=== PATIENT | female | born 1995 | race Hispanic/Latino ===

== ENCOUNTER 2024-06-07 09:35 | Emergency (ER) | payer BC ==
--- OUTSIDE RECORDS SUMMARY | 2024-06-07 09:39 | XMS REPORT | Continuity of Care Document ---
Author Name Unknown Address [address] [place] [address]. [address] [place] [id number] [facility] thconnect Address [address] [place] [address] 1 [address] [place] [address] Care Team Providers Care Professor Of Theology Name Role Phone LITO KHAN Attending Clinician UnavailLEIA Ortega Attending Clinician Unavailab le AMBREEN_FARHANA Attending Clinician Unavailable Zuniga_F Attending Clinician Unavailable KD DORAN Attending Clinician Unavailab le Hawkins_Rhianna Attending Clinician Unavailable G_Paptc Attending Clinician Unavailable ZACH DEL VALLE Attending Clinician Unavailab HANNAH Bolton Attending Clinician Unavailable LITO BARCENAS Attending Clinician Unavailable RASHMI HILL Attending Clinician Unavailab DELLA Kimball Attending Clinician Unavailable SUSY KAUFMAN Attending Clinician Unavailable ERROL MONIQUE Attending Clinician Unavailable PIPER SÁNCHEZ Attending Clinician Unav LISA Olivo Attending Clinician Unavailable AMBREEN_FARHANA Admitting Clinician Unavailable Zuniga_F Admitting Clinician Unavailable Hawkins_M Admitting Clinician Unavailable Sheyla_Erin Admitting Clinician Unavailable LITO KHAN Admitting Clinician Unavailabl e Payers Payer Name Policy Type Policy Number Effective Date Expirati on Date Source [place] [id number] 2023 00:00:00 2023 00:00:00 [facility] H[facility] [id number] 2016 00:00[place] [id number] [place] [facility] [address] [facility] [id number] [place] [facility] [place]ID) [id number] Problems Condition Name Condition Details Condition Category Status Onset Date Resolution Date Last Treatment Date Treating Clinician Comments Source Anxiety Anxiety Problem Active 2023-09 0 00:00: 00 [facility] Attention deficit hyperactiv ity disorder Attention Deficit Hyperactiv ity Disorder Problem Active 2023-09 0 00:00: 00 [facility] Tachycardi a Tachycardi a Problem Active 2023-09 0 00:00: 00 [facility] Past history of miscarriag e Past History of Miscarriag e Problem Active 06-03 00:00: 00 [facility] Uses depot contracept ion Uses Depot Contracept ion Problem Active 03-01 00:00: 00 [facility] Sterilizat ion requested Sterilizat ion Requested Problem Active 11-24 00:00: 00 [facility] External hemorrhoid s External Hemorrhoid s Problem Active 11-17 00:00: 00 [facility] Contracept ion education Contracept ion Education Problem Active 11-17 00:00: 00 [facility] Gynecologi c examinatio n Gynecologi c Examinatio n Problem Active 11-17 00:00: 00 [facility] Bacterial disease screening Bacterial Disease Screening Problem Active 16 00:00: 00 [facility] Bacterial vaginosis Bacterial Vaginosis Problem Active 10-25 00:00: 00 [facility] Candidiasi s of vagina Candidiasi s of Vagina Problem Active 10-25 00:00: 00 [facility] Deep pain on intercours e Deep Pain on Intercours e Problem Active 10-25 00:00: 00 [facility] Initial prescripti on of oral contracept ion Initial Prescripti on of Oral Contracept ion Problem Active 10-25 00:00: 00 [facility] Persistent hematuria Persistent Hematuria Problem Active 11-15 00:00: 00 [facility] Proteinuri a Proteinuri a Problem Active 11-15 00:00: 00 [facility] Acute stress disorder Acute Stress Disorder Problem [facility] 11[facility]01 [facility] Acute cystitis in , antepartum Acute Cystitis in , Antepartum Problem Active 11-01 00:00: 00 [facility] Acute cervicitis Acute Cervicitis Problem Active 10-18 00:00: 00 [facility] Mild hyperemesi s-not delivered Mild Hyperemesi s-not Delivered Problem Active 10-18 00:00: 00 [facility] Iron deficiency anemia of Iron Deficiency Anemia of Problem Active 11-29 00:00: 00 [facility] Influenza Influenza Problem Active [facility] Allergies, Adverse Reactions, Alerts Allergy Name Allergy Type Status Severity Reaction(s) Onset Date Inactive Date Treating Clinician Comments Source PENICILL INS Allergy to substanc e Active [facility] Social History Smoking Status Start Date Stop Date Source Never Smoker [facility] Medications Ordered Medication Name Filled Medication Name Start Date Stop Date Current Medication? Ordering Clinician Indication Dosage Frequency Signature (SIG) Comments Components Source Adderall XR 20 mg capsule,ext ended release Take 1 mg every day by oral route as directed for 30 days. Adderall XR 20 mg capsule,ext ended release Take 1 mg every day by oral route as directed for 30 days. 02-26 00:00: 00 No 1mg Q1D Adderall XR 20 mg capsule,ex tended release Take 1 mg every day by oral route as directed for 30 days. [facility] Adderall XR 20 mg capsule,ext ended release Take 1 mg every day by oral route as directed for 30 days. Adderall XR 20 mg capsule,ext ended release Take 1 mg every day by oral route as directed for 30 days. 2023-0 6-25 00:00: 00 No 1mg Q1D Adderall XR 20 mg capsule,ex tended release Take 1 mg every day by oral route as directed for 30 days. [facility] Aplisol 5 tub. unit/0.1 mL intradermal injection solution Inject 0.1 mL by intradermal route as directed. Aplisol 5 tub. unit/0.1 mL intradermal injection solution Inject 0.1 mL by intradermal route as directed. No .1mL Aplisol 5 tub. unit/0.1 mL intraderma l injection solution Inject 0.1 mL by intraderma l route as directed. [facility] ParaGard T 380A 380 square mm intrauterin e device Take 1 device by intrauterin e route. ParaGard T 380A 380 square mm intrauterin e device Take 1 device by intrauterin e route. No 1device (s) ParaGard T 380A 380 square mm intrauteri ne device Take 1 device by intrauteri ne route. [facility] alprazolam 0.25 mg tablet Take 1 tablet as needed by oral route for 30 days. alprazolam 0.25 mg tablet Take 1 tablet as needed by oral route for 30 days. No 1 alprazolam 0.25 mg tablet Take 1 tablet as needed by oral route for 30 days. [facility] citalopram 20 mg tablet Take 1 tablet every day by oral route as directed for 90 days. citalopram 20 mg tablet Take 1 tablet every day by oral route as directed for 90 days. No 1 Q1D citalopram 20 mg tablet Take 1 tablet every day by oral route as directed for 90 days. [facility] clobetasol 0.05 % scalp solution Apply 1 application every day by topical route as directed for 15 days. clobetasol 0.05 % scalp solution Apply 1 application every day by topical route as directed for 15 days. No 1applic ation(s ) Q1D clobetasol 0.05 % scalp solution Apply 1 applicatio n every day by topical route as directed for 15 days. [facility] metoprolol succinate ER 25 mg tablet,exte nded release 24 hr Take 1 tablet every day by oral route as directed for 30 days. metoprolol succinate ER 25 mg tablet,exte nded release 24 hr Take 1 tablet every day by oral route as directed for 30 days. No 1 Q1D metoprolol succinate ER 25 mg tablet,ext ended release 24 hr Take 1 tablet every day by oral route as directed for 30 days. [facility] alprazolam 0.25 mg tablet Take 1 tablet as needed by oral route for 30 days. alprazolam 0.25 mg tablet Take 1 tablet as needed by oral route for 30 days. No 1 alprazolam 0.25 mg tablet Take 1 tablet as needed by oral route for 30 days. [facility] Program citalopram 20 mg tablet Take 1 tablet every day by oral route as directed for 90 days. citalopram 20 mg tablet Take 1 tablet every day by oral route as directed for 90 days. No 1 Q1D citalopram 20 mg tablet Take 1 tablet every day by oral route as directed for 90 days. [facility] clobetasol 0.05 % scalp solution Apply 1 application every day by topical route as directed for 15 days. clobetasol 0.05 % scalp solution Apply 1 application every day by topical route as directed for 15 days. No 1applic ation(s ) Q1D clobetasol 0.05 % scalp solution Apply 1 applicatio n every day by topical route as directed for 15 days. [facility] metoprolol succinate ER 25 mg tablet,exte nded release 24 hr Take 1 tablet every day by oral route as directed for 30 days. metoprolol succinate ER 25 mg tablet,exte nded release 24 hr Take 1 tablet every day by oral route as directed for 30 days. No 1 Q1D metoprolol succinate ER 25 mg tablet,ext ended release 24 hr Take 1 tablet every day by oral route as directed for 30 days. [facility] ParaGard T 380A 380 square mm intrauterin e device Take 1 device by intrauterin e route. ParaGard T 380A 380 square mm intrauterin e device Take 1 device by intrauterin e route. No 1device (s) ParaGard T 380A 380 square mm intrauteri ne device Take 1 device by intrauteri ne route. [facility] folic acid 1 mg tablet Take 1 tablet every day by oral route. folic acid 1 mg tablet Take 1 tablet every day by oral route. No 1 Q1D folic acid 1 mg tablet Take 1 tablet every day by oral route. [facility] Reglan 10 mg tablet Take 1 tablet every 6 hours by oral route as needed. Reglan 10 mg tablet Take 1 tablet every 6 hours by oral route as needed. No 1 Q6H Reglan 10 mg tablet Take 1 tablet every 6 hours by oral route as needed. [facility] Immunizations Ordered Immunization Name Filled Immunization Name Date Status Comments Source COVID-19, mRNA, LNP-S, PF, 100 mcg/0.5 mL dose COVID-19, mRNA, LNP-S, PF, 100 mcg/0.5 mL dose 2021-07-02 11:50:43 Completed [facility] influenza, injectable, quadrivalent influenza, injectable, quadrivalent 2021-06-07 00:00:00 Completed [facility] COVID-19, mRNA, LNP-S, PF, 100 mcg/0.5 mL dose COVID-19, mRNA, LNP-S, PF, 100 mcg/0.5 mL dose 2020-12-23 12:01:13 Completed [facility] COVID-19, mRNA, LNP-S, PF, 100 mcg/0.5 mL dose COVID-19, mRNA, LNP-S, PF, 100 mcg/0.5 mL dose 2020-11-24 10:22:41 Completed [facility] COVID-19, mRNA, LNP-S, PF, 100 mcg/0.5 mL dose (Moderna) COVID-19, mRNA, LNP-S, PF, 100 mcg/0.5 mL dose (Moderna) Unknown Completed [facility] COVID-19, mRNA, LNP-S, PF, 100 mcg/0.5 mL dose (Moderna) COVID-19, mRNA, LNP-S, PF, 100 mcg/0.5 mL dose (Moderna) Unknown Completed [facility] COVID-19, mRNA, LNP-S, PF, 100 mcg/0.5 mL dose (Moderna) COVID-19, mRNA, LNP-S, PF, 100 mcg/0.5 mL dose (Moderna) Unknown Completed [facility] influenza, injectable, quadrivalent influenza, injectable, quadrivalent Unknown Completed [facility] Tdap Tdap Unknown Completed [facility] COVID-19, mRNA, LNP-S, PF, 100 mcg/0.5 mL dose (Moderna) COVID-19, mRNA, LNP-S, PF, 100 mcg/0.5 mL dose (Moderna) Unknown Completed [facility] COVID-19, mRNA, LNP-S, PF, 100 mcg/0.5 mL dose (Moderna) COVID-19, mRNA, LNP-S, PF, 100 mcg/0.5 mL dose (Moderna) Unknown Completed [facility] COVID-19, mRNA, LNP-S, PF, 100 mcg/0.5 mL dose (Moderna) COVID-19, mRNA, LNP-S, PF, 100 mcg/0.5 mL dose (Moderna) Unknown Completed [facility] influenza, injectable, quadrivalent influenza, injectable, quadrivalent Unknown Completed [facility] Tdap Tdap Unknown Completed [facility] COVID-19, mRNA, LNP-S, PF, 100 mcg/0.5 mL dose (Moderna) COVID-19, mRNA, LNP-S, PF, 100 mcg/0.5 mL dose (Moderna) Unknown Completed [facility] COVID-19, mRNA, LNP-S, PF, 100 mcg/0.5 mL dose (Moderna) COVID-19, mRNA, LNP-S, PF, 100 mcg/0.5 mL dose (Moderna) Unknown Completed [facility] COVID-19, mRNA, LNP-S, PF, 100 mcg/0.5 mL dose (Moderna) COVID-19, mRNA, LNP-S, PF, 100 mcg/0.5 mL dose (Moderna) Unknown Completed [facility] influenza, injectable, quadrivalent influenza, injectable, quadrivalent Unknown Completed [facility] Vital Signs Vital Name Observation Time Observation Value Comments S ource BMI (Body Mass Index) 2024-06-04 00:00:00 25.2 kg/m2 [facility] Body Weight 2024-06-04 00:00:00 133.2 [lb_av] [facility] BP Diastolic 2024-06-04 00:00:00 68 mm[Hg] [facility] Height 2024-06-04 00:00:00 61 [in_i] [facility] BP Systolic 2024-06-04 00:00:00 102 mm[Hg] [facility] Body Weight 2023-09-27 00:00:00 2290 [oz_av] [facility] Height 2023-09-27 00:00:00 61 [in_i] [facility] BP Diastolic 2023-09-27 00:00:00 89 mm[Hg] [facility] BMI (Body Mass Index) 2023-09-27 00:00:00 27 kg/m2 [facility] BP Systolic 2023-09-27 00:00:00 129 mm[Hg] [facility] BMI (Body Mass Index) 2023-06-14 00:00:00 29.9 kg/m2 [facility] BP Diastolic 2023-06-14 00:00:00 74 mm[Hg] [facility] Body Weight 2023-06-14 00:00:00 2534 [oz_av] [facility] Height 2023-06-14 00:00:00 61 [in_i] [facility] BP Systolic 2023-06-14 00:00:00 116 mm[Hg] [facility] BP Diastolic 2022-12-29 00:00:00 84 mm[Hg] [facility] Height 2022-12-29 00:00:00 61 [in_i] [facility] BMI (Body Mass Index) 2022-12-29 00:00:00 26.5 kg/m2 [facility] BP Systolic 2022-12-29 00:00:00 125 mm[Hg] [facility] Body Weight 2022-12-29 00:00:00 2240 [oz_av] [facility] Height 2022-11-02 00:00:00 61 [in_i] [facility] BMI (Body Mass Index) 2022-11-02 00:00:00 25.3 kg/m2 [facility] Body Weight 2022-11-02 00:00:00 2144 [oz_av] [facility] BP Diastolic 2022-09-28 00:00:00 77 mm[Hg] [facility] Height 2022-09-28 00:00:00 61 [in_i] [facility] BMI (Body Mass Index) 2022-09-28 00:00:00 25.3 kg/m2 [facility] BP Systolic 2022-09-28 00:00:00 127 mm[Hg] [facility] Body Weight 2022-09-28 00:00:00 2144 [oz_av] [facility] BP Diastolic 2022-08-12 00:00:00 85 mm[Hg] [facility] Height 2022-08-12 00:00:00 61 [in_i] [facility] BMI (Body Mass Index) 2022-08-12 00:00:00 23.5 kg/m2 [facility] BP Systolic 2022-08-12 00:00:00 122 mm[Hg] [facility] Body Weight 2022-08-12 00:00:00 1993.6 [oz_av] [facility] BP Diastolic 2022-07-15 00:00:00 74 mm[Hg] [facility] Height 2022-07-15 00:00:00 61 [in_i] [facility] BMI (Body Mass Index) 2022-07-15 00:00:00 23.2 kg/m2 [facility] BP Systolic 2022-07-15 00:00:00 117 mm[Hg] [facility] Body Weight 2022-07-15 00:00:00 123 [lb_av] [facility] BP Diastolic 2022-07-01 00:00:00 74 mm[Hg] [facility] Height 2022-07-01 00:00:00 61 [in_i] [facility] BP Systolic 2022-07-01 00:00:00 119 mm[Hg] [facility] BP Diastolic 2022-05-17 00:00:00 77 mm[Hg] [facility] Height 2022-05-17 00:00:00 61 [in_i] [facility] BMI (Body Mass Index) 2022-05-17 00:00:00 24.4 kg/m2 [facility] BP Systolic 2022-05-17 00:00:00 115 mm[Hg] [facility] Body Weight 2022-05-17 00:00:00 129.3 [lb_av] [facility] BP Diastolic 2021-03-16 00:00:00 67 mm[Hg] [facility] Height 2021-03-16 00:00:00 61 [in_i] [facility] BMI (Body Mass Index) 2021-03-16 00:00:00 24.3 kg/m2 [facility] BP Systolic 2021-03-16 00:00:00 111 mm[Hg] [facility] Body Weight 2021-03-16 00:00:00 128.4 [lb_av] [facility] BP Diastolic 2021-01-26 00:00:00 70 mm[Hg] [facility] Height 2021-01-26 00:00:00 61 [in_i] [facility] BMI (Body Mass Index) 2021-01-26 00:00:00 24.4 kg/m2 [facility] BP Systolic 2021-01-26 00:00:00 105 mm[Hg] [facility] Body Weight 2021-01-26 00:00:00 129 [lb_av] [facility] BP Diastolic 2021-01-19 00:00:00 65 mm[Hg] [facility] Height 2021-01-19 00:00:00 61 [in_i] [facility] BMI (Body Mass Index) 2021-01-19 00:00:00 23.2 kg/m2 [facility] BP Systolic 2021-01-19 00:00:00 100 mm[Hg] [facility] Body Weight 2021-01-19 00:00:00 122.9 [lb_av] [facility] BP Diastolic 2021-01-12 00:00:00 69 mm[Hg] [facility] Height 2021-01-12 00:00:00 61 [in_i] [facility] BMI (Body Mass Index) 2021-01-12 00:00:00 23.7 kg/m2 [facility] BP Systolic 2021-01-12 00:00:00 105 mm[Hg] [facility] Body Weight 2021-01-12 00:00:00 125.5 [lb_av] [facility] Height 2020-12-01 00:00:00 61 [in_i] [facility] BMI (Body Mass Index) 2020-12-01 00:00:00 23.2 kg/m2 [facility] Body Weight 2020-12-01 00:00:00 123 [lb_av] [facility] BP Diastolic 2020-11-27 00:00:00 68 mm[Hg] [facility] Height 2020-11-27 00:00:00 61 [in_i] [facility] BMI (Body Mass Index) 2020-11-27 00:00:00 23.4 kg/m2 [facility] BP Systolic 2020-11-27 00:00:00 111 mm[Hg] [facility] Body Weight 2020-11-27 00:00:00 123.9 [lb_av] [facility] Height 2020-10-26 00:00:00 61 [in_i] [facility] BP Diastolic 2020-03-12 00:00:00 65 mm[Hg] [facility] Height 2020-03-12 00:00:00 61 [in_i] [facility] BMI (Body Mass Index) 2020-03-12 00:00:00 25.3 kg/m2 [facility] BP Systolic 2020-03-12 00:00:00 102 mm[Hg] [facility] Body Weight 2020-03-12 00:00:00 133.9 [lb_av] [facility] Height 2019-12-12 00:00:00 61 [in_i] [facility] BMI (Body Mass Index) 2019-12-12 00:00:00 25.3 kg/m2 [facility] Body Weight 2019-12-12 00:00:00 134 [lb_av] [facility] BP Diastolic 2019-09-09 00:00:00 61 mm[Hg] [facility] Height 2019-09-09 00:00:00 61 [in_i] [facility] BMI (Body Mass Index) 2019-09-09 00:00:00 24.6 kg/m2 [facility] BP Systolic 2019-09-09 00:00:00 102 mm[Hg] [facility] Body Weight 2019-09-09 00:00:00 130.1 [lb_av] [facility] BP Diastolic 2019-06-04 00:00:00 67 mm[Hg] [facility] Height 2019-06-04 00:00:00 61 [in_i] [facility] BMI (Body Mass Index) 2019-06-04 00:00:00 25.8 kg/m2 [facility] BP Systolic 2019-06-04 00:00:00 116 mm[Hg] [facility] Body Weight 2019-06-04 00:00:00 136.7 [lb_av] [facility] BP Diastolic 2019-03-01 00:00:00 55 mm[Hg] [facility] Height 2019-03-01 00:00:00 61 [in_i] [facility] BMI (Body Mass Index) 2019-03-01 00:00:00 24 kg/m2 [facility] BP Systolic 2019-03-01 00:00:00 99 mm[Hg] [facility] Body Weight 2019-03-01 00:00:00 127.1 [lb_av] [facility] BP Diastolic 2018-11-16 00:00:00 65 mm[Hg] [facility] Height 2018-11-16 00:00:00 61 [in_i] [facility] BMI (Body Mass Index) 2018-11-16 00:00:00 23.6 kg/m2 [facility] BP Systolic 2018-11-16 00:00:00 100 mm[Hg] [facility] Body Weight 2018-11-16 00:00:00 125 [lb_av] [facility] Procedures Procedure Date / Time Performed Performing Clinician Source ULTRASOUND, UTERUS REAL TIME WITH IMAGE DOCUMENTAITON, TRANSVAGINAL 2024-06-04 00:00:00 [facility] Dilation and Curettage 2021-01-20 00[facility]00[facility] ULTRASOUND, UTERUS REAL TIME WITH IMAGE DOCUMENTAITON, TRANSVAGINAL 2021-01-19 00:00:00 [facility] Dilation & Curettage (Surg) [facility] Plan of Care Planned Activity Planned Date Details Comments Source Diagnostic Test Pending 2023-08-21 00:00:00 PPD (purified protein derivative), skin test [code = PPD (purified protein derivative), skin test] [facility] Encounters Start Date/Time End Date/Time Encounter Type Admission Type Attending Clinicians Care Facility Care Department Encounter ID Source 2017-12-27 09:40:00 Inpatient LITO [facility]ST[facility] [id number] [facility] 2024-06-04 00:00:00 2024-06-04 00:00:00 Lito Khan MD: [address] [place] [address], [address], [place] [address] , Ph. [phone] [facility] [place] [id number] [facility] 2024-03-15 20:32:00 2024-03-16 01:18:00 Emergency ER [facility] [id number] [facility] 2023-10-31 00:00:00 2023-10-31 00:00:00 Outpatient AMBREEN_FAR HANA [facility] [id number] [facility] 2023-09-27 00:00:00 2023-09-27 00:00:00 Outpatient AMBREEN_FAR HANA [facility] [id number] [facility] 2023-09-27 00:00:00 2023-09-27 00:00:00 Teri Solitario, BIN TRIPPER OPERATOR: [place] [address] , Ph. [facility] [id number] [facility] 2023-08-21 00:00:00 2023-08-21 00:00:00 Outpatient AMBREEN_FAR HANA [facility] [id number] [facility] 2023-08-21 00:00:00 2023-08-21 00:00:00 Vangie Blackmon, BIN TRIPPER OPERATOR: [place] [address] , Ph. [facility] [id number] [facility] 2023-06-14 00:00:00 2023-06-14 00:00:00 Outpatient Zuniga_F [facility] [id number] [facility] 2023-06-14 00:00:00 2023-06-14 00:00:00 Kd Doran MD: [address] [place] [id number] , Ph. [facility] [id number] [facility] 2023-04-03 11:49:00 2023-04-03 11:49:00 Outpatient KD [facility] [id number] [facility] 2023-03-28 10:26:00 2023-03-28 10:26:00 Outpatient KD [facility] [id number] [facility] 2023-02-28 07:45:00 2023-02-28 07:45:00 Outpatient KD [facility] [id number] [facility] 2023-02-16 07:47:00 2023-02-16 07:47:00 Outpatient KD [facility] [id number] [facility] 2023-01-09 00:00:00 2023-01-09 00:00:00 Outpatient Hawkins_M [facility]G [facility] [id number] [facility] 2022-12-29 00:00:00 2022-12-29 00:00:00 Kd Doran MD: [address] [place] [address], [address], [place] [address] , Ph. MMG [facility] [id number] [facility] 2022-12-23 00:00:00 2022-12-23 00:00:00 [place] [id number] [facility] 2022-11-02 00:00:00 2022-11-02 00:00:00 Tara Martinez, BIN TRIPPER OPERATOR: [address], [address], [place] [address] , [facility] [id number] [facility] 2022-10-10 00:00:00 2022-10-10 00:00:00 Outpatient Hawkins_M MMG MMG [id number] [facility] 2022-10-10 00:00:00 2022-10-10 00:00:00 Outpatient Hawkins_M MMG MMG [id number] [facility] 2022-09-28 00:00:00 2022-09-28 00:00:00 Kd Doran MD: [address], [place] [address] , Ph. MMG [facility] [id number] [facility] 2022-08-12 00:00:00 2022-08-12 00:00:00 Outpatient Hawkins_M MMG MM[place] [id number] [facility] 2022-08-12 00:00:00 2022-08-12 00:00:00 Outpatient Hawkins_M MMG MMG [id number] [facility] 2022-08-12 00:00:00 2022-08-12 00:00:00 Outpatient Hawkins_M MMG MMG [id number] [facility] 2022-08-12 00:00:00 2022-08-12 00:00:00 Outpatient Hawkins_M MMG MMG [id number] [facility] 2022-08-12 00:00:00 2022-08-12 00:00:00 Tara Martinez, BIN TRIPPER OPERATOR: [address], [place] [address] , Ph. MMG [facility] [id number] [facility] 2022-07-19 00:00:00 2022-07-19 00:00:00 Outpatient G_Pappas MMG MMG [id number] [facility] 2022-07-15 00:00:00 2022-07-15 00:00:00 Outpatient G_Pappas MMG MMG [id number] [facility] 2022-07-15 00:00:00 2022-07-15 00:00:00 ODELL Juares-BC: [address] [address] , Ph. [phone] [facility] [id number] [facility] 2022-07-01 00:00:00 2022-07-01 00:00:00 Outpatient G_Pappas MMG MMG [id number] [facility] 2022-07-01 00:00:00 2022-07-01 00:00:00 Lito Khan MD: [address] [address] , Ph. [phone] MM[facility] [id number] [facility] 2022-06-28 00:00:00 2022-06-28 00:00:00 Outpatient G_Pappas MMG MMG [id number] [facility] 2022-05-17 00:00:00 2022-05-17 00:00:00 Outpatient G_Pappas MMG MMG [id number] [facility] 2022-05-17 00:00:00 2022-05-17 00:00:00 Lito Khan MD: [address] [address] , Ph. [phone] [facility] [id number] [facility] 2022-02-05 00:00:00 2022-02-05 00:00:00 Outpatient G_Pappas MMG MMG [id number] [facility] 2022-01-31 22:17:00 2022-02-01 00:57:00 Emergency ER ZACH [facility] [id number] [facility] 2021-08-31 01:45:00 2021-08-31 01:45:00 Outpatient AMBREEN_RYAN [facility] [id number] [facility] 2021-08-24 03:35:00 2021-08-24 03:35:00 Outpatient AMBREEN_RYAN DOYLE [facility] [id number] [facility] 2021-07-02 12:04:00 2021-07-02 12:04:00 Outpatient AMBREEN_RYAN [facility] [id number] [facility] 2021-07-02 00:00:00 2021-07-02 00:00:00 Dee Wright MD: [place] [address] , Ph. [facility] [id number] [facility] 2021-05-20 02:13:00 2021-05-20 02:13:00 Outpatient AMBREEN_RYAN DOLYE [facility] [id number] [facility] 2021-05-20 00:00:00 2021-05-20 00:00:00 Dee Wright MD: [place] [address] , Ph. [facility] [id number] [facility] 2021-03-16 01:09:00 2021-03-16 01:09:00 Outpatient AMBREEN_YRAN [facility] [id number] [facility] 2021-03-16 00:00:00 2021-03-16 00:00:00 Refugio Rice MD: [address] [place] [address] , Ph. [facility] Scientologist [facility] [place] [id number] [facility] 2021-03-15 12:57:00 2021-03-15 12:57:00 Outpatient AMBREEN_FAR TERRELLA [facility] [id number] [facility] 2021-02-18 05:48:00 2021-02-18 05:48:00 Outpatient AMBREEN_RYAN DOYLE [facility] [id number] [facility] 2021-02-18 05:48:00 2021-02-18 05:48:00 Outpatient AMBREEN_FAR [facility] [id number] [facility] 2021-02-18 05:48:00 2021-02-18 05:48:00 Outpatient AMBREEN_RYAN [facility] PH[facility]ENIXBirdie [facility] [id number] [facility] 2021-02-16 12:32:00 2021-02-16 12:32:00 Outpatient G[facility]Papbethels [facility] [id number] [facility] 2021-01-26 00:00:00 2021-01-26 00:00:00 Lito Khan MD: [address] [address] , Ph. [phone] G_Paptc MMG [facility] [id number] [facility] 2021-01-20 12:13:00 2021-01-20 12:13:00 Outpatient [facility] [id number] [facility] 2021-01-19 13:14:00 2021-01-19 13:14:00 Outpatient VICTOR MANUEL KHAN [facility] [id number] [facility] 2021-01-19 00:00:00 2021-01-19 00:00:00 Lito Khan MD: [address] [address] , Ph. [phone] G_Pappas [facility] [id number] [facility] 2021-01-12 15:44:00 2021-01-12 15:44:00 [facility]patient [facility] [id number] [facility] 2021-01-12 00:00:00 2021-01-12 00:00:00 Lito Khan MD: [address] [address] , Ph. [phone] G_Pappas [facility] [id number] 0511 [facility] 2021-01-04 10:06:00 2021-01-04 10:06:00 Outpatient AMBREEN_FAR [facility]NA [facility] [id number] [facility] 2020-12-30 10:26:00 2020-12-30 12:44:00 Emergency ER HANNAH MUNSON [facility] [id number] [facility] 2020-12-23 12:05:00 2020-12-23 12:05:00 Outpatient AMBREEN_FAR [facility]NA [facility] [id number] [facility] 2020-12-23 12:05:00 2020-12-23 12:05:00 Outpatient AMBREEN_FAR [facility]NA [facility] [id number] [facility] 2020-12-23 00:00:00 2020-12-23 00:00:00 Dee Wright MD: [address] [place] [address] , Ph. [facility] Scientologist [facility] [id number] [facility] 2020-12-13 05:51:00 2020-12-13 05:51:00 Outpatient AMBREEN_RYAN TEJADAA [facility] [id number] [facility] 2020-12-04 03:52:00 2020-12-04 03:52:00 [facility] [id number] [facility] 2020-12-03 03:40:00 2020-12-03 03:40:00 Outpatient AMBREEN_RYAN DOYLE [facility] [id number] [facility] 2020-12-01 12:06:00 2020-12-01 12:06:00 Outpatient AMBREEN_RYAN DOYLE [facility] [id number] [facility] 2020-12-01 00:00:00 2020-12-01 00:00:00 Tess Cobb MD: [place] [address] , Ph. [facility] Scientologist [facility] [id number] [facility] 2020-11-30 03:11:00 2020-11-30 03:11:00 Outpatient AMBREEN_RYAN DOYLE [facility] [id number] [facility] 2020-11-27 09:00:00 2020-11-27 09:00:00 Outpatient [facility] [id number] [facility] 2020-11-27 00:00:00 2020-11-27 00:00:00 Lito Khan MD: [address] [place] [address] [address] [address] , Ph. [phone] [facility] [id number] [facility] 2020-11-25 09:43:00 2020-11-25 09:43:00 Outpatient AMBREEN_RYAN DOYLE [facility] [id number] [facility] 2020-11-24 10:31:00 2020-11-24 10:31:00 Outpatient AMBREEN_RYAN DOYLE [facility] [id number] [facility] 2020-11-24 00:00:00 2020-11-24 00:00:00 Dee Wright MD: [address] [place] [address] , Ph. [facility] Scientologist [facility] [id number] [facility] 2020-11-23 10:56:00 2020-11-23 10:56:00 Outpatient G_Pappas [facility] [id number] [facility] 2020-11-11 05:47:00 2020-11-11 05:47:00 Outpatient AMBREEN_RYAN DOYLE [facility] [id number] [facility] 2020-11-10 03:49:00 2020-11-10 03:49:00 Outpatient AMBREEN_RYAN DOYLE [facility] [id number] [facility] 2020-11-09 11:37:00 2020-11-09 11:37:00 Outpatient AMBREEN_RYAN DOYLE [facility] [id number] [facility] 2020-10-27 09:11:00 2020-10-27 09:11:00 Outpatient [facility]O [facility] [id number] [facility] 2020-10-26 00:00:00 2020-10-26 00:00:00 Lito Khan MD: [address] [place] [address] , Ph. [phone] G_Pappas [facility] [id number] [facility] 2020-07-22 02:20:00 2020-07-22 02:20:00 Outpatient G_Pappas MMG MMG [id number] [facility] 2020-07-14 10:30:00 2020-07-14 10:30:00 Outpatient G_Pappas MMG MMG [id number] [facility] 2020-07-01 04:45:00 2020-07-01 04:45:00 Outpatient G_Pappas MMG MMG [id number] [facility] 2020-03-28 12:14:00 2020-03-28 12:14:00 Outpatient G_Pappas MMG MMG [id number] [facility] 2020-03-12 00:00:00 2020-03-12 00:00:00 Lito Khan MD: [address] [place] [address] , Ph. [phone] G_Pappas MM[facility] [id number] [facility] 2019-12-28 10:43:00 2019-12-28 10:43:00 Outpatient G_Pappas MMG MMG [id number] [facility] 2019-12-12 00:00:00 2019-12-12 00:00:00 Lito Khan MD: [address], [place] [address] , Ph. [phone] G_Pappas MM[facility] [id number] [facility] 2019-09-12 11:15:00 2019-09-12 11:15:00 Outpatient G_Pappas MMG MMG [id number] [facility] 2019-09-09 00:00:00 2019-09-09 00:00:00 Lito Khan MD: [address], [place] [address] , Ph. [phone] [facility]rin [facility] [id number] 0106 [facility] 2019-06-04 00:00:00 2019-06-04 00:00:00 Lito Khan MD: [address], [place] [address] , Ph. [phone] [facility] [id number] 1001 [facility] 2019-03-01 00:00:00 2019-03-01 00:00:00 Mimi Rutherford, NP: [address], [address], [place] [address] , Ph. [phone] MMG [facility] [id number] 0628 [facility] 2018-11-16 00:00:00 2018-11-16 00:00:00 Mimi Rutherford, NP: [address], [address], [place] [address] , Ph. [phone] [facility] [id number] 0315 [facility] 2017-05-07 16:08:00 2017-05-09 09:35:00 Inpatient ER LITO KHAN [facility] [id number] [facility] 2017-04-23 14:55:00 2017-04-23 16:05:00 Emergency EL LITO KHAN [facility] [id number] [facility] 2017-04-20 11:03:00 2017-04-20 11:03:00 Outpatient [facility]O [facility] [id number] [facility] 2017-03-09 09:42:00 2017-03-09 09:42:00 Outpatient [facility]ITO [facility] [id number] [facility] 2016-12-13 11:06:00 2016-12-13 11:06:00 Outpatient EL ERINLITO Fox [facility] [id number] [facility] 2016-10-18 11:16:00 2016-10-18 11:16:00 Outpatient EL ERINLITO Fox [facility] [id number] [facility] 2016-10-11 12:23:00 2016-10-11 15:50:00 Emergency ER LITO BARCENAS [facility] [id number] [facility] 2016-10-07 15:52:00 2016-10-07 17:59:00 Emergency ER RASHMI HILL [facility] [id number] [facility] 2016-10-05 14:34:00 2016-10-05 16:03:00 Emergency ER DELLA MONZON [facility] [id number] [facility] 2016-01-31 07:35:00 2016-02-01 10:50:00 Inpatient ER LITO KHAN [facility] [id number] [facility] 2016-01-15 09:10:00 2016-01-15 09:10:00 Outpatient EL ERINLITO Fox [facility] [id number] [facility] 2015-11-30 14:36:00 2015-11-30 14:36:00 Outpatient EL ERINLITO Fox [facility] [id number] [facility] 2015-07-28 11:00:00 2015-07-28 11:00:00 Outpatient EL ERINLITO Fox [facility] [id number] [facility] 2013-08-13 23:24:00 2013-08-14 00:13:00 Emergency ER SUSY KAUFMAN [facility] [id number] [facility] 2013-06-24 18:55:00 2013-06-26 11:39:00 Inpatient EL LITO KHAN [facility] [id number] [facility] 2013-01-18 16:09:00 2013-01-18 17:05:00 Emergency ER LIZ, CLEMENT [facility] [id number] [facility] 2012-09-20 08:08:00 2012-09-20 09:18:00 Emergency ER UGORJI, [facility] [id number] [facility] 2011-09-21 09:27:00 2011-09-21 12:00:00 Emergency ER UGDESIREE, CLEMENT [facility] [id number] [facility] 2011-06-22 19:43:00 2011-06-23 00:50:00 Emergency ER LIZ, CLEMENT [facility] [id number] [facility] 2011-02-26 15:21:00 2011-02-26 18:50:00 Emergency ER ERROL MONIQUE [facility] [id number] [facility] 2010-12-15 12:18:00 2010-12-15 12:18:00 Outpatient EL VALLOPPILLI L, AMMINI [facility] [id number] [facility] 2010-03-09 09:09:00 2010-03-09 09:09:00 Outpatient EL VALLOPPILLI L, AMMINI [facility] [id number] [facility] 2009-10-30 15:08:00 2009-10-30 15:08:00 Outpatient EL VALLOPPILLI L, AMMINI [facility] [id number] [facility] 2009-10-28 07:39:00 2009-10-28 07:39:00 Outpatient EL VALLOPPILLI L, AMMINI [facility] [id number] [facility] 2005-08-23 18:07:00 2005-08-23 20:15:00 Emergency ER LISA SALAAZR [facility] [id number] [facility] 2003-11-03 17:32:00 2003-11-03 17:32:00 Outpatient PIPER XIE [facility] [id number] [facility] Results Test Description Test Time Test Comments Results Result Co mments Source [facility] A, [id number] 14:52:00* Test Item Value Reference Range Interpretation Comme nts Strep Result (test code = St rep Result) positive [facility] GroupInfluenza virus A and B and SARS-CoV+SARS-CoV-2 (COVID- 19) Ag panel - Upper respiratory specimen byRapid [id number] 14:52:00 * Test Item Value Reference Range Interpretation Comme nts RAPID SARS COV (test code = RAPID SARS COV) negative RAPID FLU A (test code = RAP ID FLU A) negative RAPID FLU B (test code = RAP ID FLU B) positive [facility] Grouppregnancy test, zijco1464-12-05 16:48:42* Test Item Value Reference Range Interpretation Comme nts Test (test code = Test) negative [facility] group A, [id number] 09:03:00* Test Item Value Reference Range Interpretation Comme nts Strep Result (test code = St rep Result) positive [facility] GroupInfluenza virus A and B and SARS-CoV+SARS-CoV-2 (COVID- 19) Ag panel - Upper respiratory specimen byRapid [id number] 08:59:20 * Test Item Value Reference Range Interpretation Comme nts RAPID SARS COV (test code = RAPID SARS COV) negative RAPID FLU A (test code = RAP ID FLU A) positive RAPID FLU B (test code = RAP ID FLU B) negative [facility], qwxqx2428-03-49 15:16:20* Test Item Value Reference Range Interpretation Comme nts Test (test code = Test) negative [facility] GroupUrinalysis macro (dipstick) panel - [id number] 15:16:00* Test Item Value Reference Range Interpretation Comme nts Leukocytes (test code = Leukocytes) Negative Nitrite (test code = Nitrite) negative Urobilinogen (test code = Urobilinogen) .2 Protein (test code = Protein) Negative pH (test code = pH) 5.5 Blood (test code = Blood) Large Specific Concordia (test code = Specific [place]ia) 1.030 Ketone (test code = Ketone) Trace Bilirubin (test code = Bilirubin) Negative Glucose (test code = Glucose) Negative Appearance (test code = Appearance) Clear Color (test code = Color) Yellow [facility], iakpr3753-06-34 10:04:54* Test Item Value Reference Range Interpretation Comme nts Test (test code = Test) negative [facility] virus A + B and SARS CoV 2 (COVID-19) and RSV RNA panel, BLAKE+probe, respiratory [id number] 15:21:00* Test Item Value Reference Range Interpretation Comme nts Influenza A (test code = Inf luenza A) negative Influenza B (test code = Inf luenza B) negative RSV (test code = RSV) negative Sars Cov 2 (test code = Sars Cov 2) negative [facility] (dipstick) panel - [id number] 10:25:04* Test Item Value Reference Range Interpretation Comme nts Leukocytes (test code = Leukocytes) Small Nitrite (test code = Nitrite) negative Urobilinogen (test code = Urobilinogen) .2 Protein (test code = Protein) Negative pH (test code = pH) 7.0 Blood (test code = Blood) Moderate Specific Concordia (test code = Specific [place]) 1.015 Ketone (test code = Ketone) Negative Bilirubin (test code = Bilirubin) Negative Glucose (test code = Glucose) Negative Appearance (test code = Appearance) Clear Color (test code = Color) Yellow [facility] HospitalCB W Auto Differential panel - [id number] 09:05:00 * Test Item Value Reference Range Interpretation Comme nts white blood count (test code = white blood count) 4.7 K/uL 4.0-11.5 red blood count (test code = red blood count) 4.06 M/uL 3.80-5.20 hemoglobin (test code = hemoglobin) 12.3 g/dL 10.5-15.7 hematocrit (test code = hematocrit) 36.7 % 34.0-50.0 MCV [Entitic volume] (test c ode = 60833-7) 90.4 fL 86-100 mean corpuscular hemoglobin (test code = mean corpuscular hemoglobin) 30.3 pg 26.2-33.4 mean corpuscular HGB conc (t est code = mean corpuscular HGB conc) 33.5 g/dL 30-34 red cell distribution width (test code = red cell distribution width) 12.3 % 12.0-15.5 platelet count (test code = platelet count) 241 K/uL 165-450 mean platelet volume (test c ode = mean platelet volume) 10.2 fL 9.4-12.6 Segmented neutrophils/100 leukocytes in Blood (test code = 89644-0) 55.7 % 44.4-80.1 Immature granulocytes [#/vol ume] in Blood (test code = 81528-4) 0.0 K/uL 0.0-0.03 lymphocyte% (test code = lymphocyte%) 32.7 % 10.0-50.0 mono % (test code = mono %) 10.4 % 3.6-12.0 eos % (test code = eos %) 0.8 % 0.0-5.4 Basophils/100 leukocytes in Unspecified specimen (test code = 24092-8) 0.2 % 0.1-1.2 Band form neutrophils [#/vol ume] in Blood (test code = 12267-3) 2.62 K/uL 1.56-6.13 Lymphocytes [#/volume] in Unspecified specimen by Automated count (test code = 05718-0) 1.5 K/uL 1.18-3.74 mono # (test code = mono #) 0.49 K/uL 0.24-0.86 eos # (test code = eos #) 0.04 K/uL 0.04-0.36 basophil # (test code = baso luz elena #) 0.01 K/uL 0.01-0.08 NRBC% (test code = NRBC%) 0 /100 WBC 0-0.2 NRBC# (test code = NRBC#) 0 K/uL [facility] HospitalChlamydia trachomatis+Neisseria gonorrhoeae rRNA [Presence] in Unspecified specimen by [id number] 11:25:00* Test Item Value Reference Range Interpretation Comme nts Chlamydia sp Ag [Presence] i n Unspecified specimen (test code = 87412-7) CT not detected ktj1379 (test code = veb7335) NG not detected [facility] HospitalUrinalysis macro (dipstick) panel - [id number] 09:46:18* Test Item Value Reference Range Interpretation Comme nts Leukocytes (test code = Leukocytes) Trace Nitrite (test code = Nitrite) negative Urobilinogen (test code = Urobilinogen) 1 Protein (test code = Protein) Trace pH (test code = pH) 8.0 Blood (test code = Blood) Non-Hemolyzed: Trace Specific Concordia (test code = Specific [place]) 1.020 Ketone (test code = Ketone) Negative Bilirubin (test code = Bilirubin) Negative Glucose (test code = Glucose) Negative Appearance (test code = Appearance) Clear Color (test code = Color) Yellow [facility] HospitalUrinalysis macro (dipstick) panel - [id number] 15:04:11* Test Item Value Reference Range Interpretation Comme nts Leukocytes (test code = Leukocytes) Small Nitrite (test code = Nitrite) negative Urobilinogen (test code = Urobilinogen) .2 Protein (test code = Protein) Negative pH (test code = pH) 7.0 Blood (test code = Blood) Non-Hemolyzed: Trace Specific [place] (test code = Specific [place]) 1.020 Ketone (test code = Ketone) Negative Bilirubin (test code = Bilirubin) Negative Glucose (test code = Glucose) Negative Appearance (test code = Appearance) Clear Color (test code = Color) Yellow [facility] Differential panel - [id number] 02:00:00 * Test Item Value Reference Range Interpretation Comme nts white blood count (test code = white blood count) 4.9 K/uL 4.0-11.5 red blood count (test code = red blood count) 3.91 M/uL 3.80-5.20 hemoglobin (test code = hemoglobin) 11.7 g/dL 10.5-15.7 hematocrit (test code = hematocrit) 35.7 % 34.0-50.0 MCV [Entitic volume] (test c ode = 04104-8) 91.3 fL 86-100 mean corpuscular hemoglobin (test code = mean corpuscular hemoglobin) 29.9 pg 26.2-33.4 mean corpuscular HGB conc (t est code = mean corpuscular HGB conc) 32.8 g/dL 30-34 red cell distribution width (test code = red cell distribution width) 12.3 % 12.0-15.5 platelet count (test code = platelet count) 263 K/uL 165-450 mean platelet volume (test c ode = mean platelet volume) 10.9 fL 9.4-12.6 Segmented neutrophils/100 leukocytes in Blood (test code = 20852-7) 53.4 % 44.4-80.1 Immature granulocytes [#/vol ume] in Blood (test code = 48766-3) 0.0 K/uL 0.0-0.03 lymphocyte% (test code = lymphocyte%) 37.0 % 10.0-50.0 mono % (test code = mono %) 8.2 % 3.6-12.0 eos % (test code = eos %) 1.0 % 0.0-5.4 Basophils/100 leukocytes in Unspecified specimen (test code = 35514-9) 0.2 % 0.1-1.2 Band form neutrophils [#/vol ume] in Blood (test code = 17404-4) 2.60 K/uL 1.56-6.13 Lymphocytes [#/volume] in Unspecified specimen by Automated count (test code = 79581-6) 1.8 K/uL 1.18-3.74 mono # (test code = mono #) 0.40 K/uL 0.24-0.86 eos # (test code = eos #) 0.05 K/uL 0.04-0.36 basophil # (test code = baso luz elena #) 0.01 K/uL 0.01-0.08 NRBC% (test code = NRBC%) 0 /100 WBC 0-0.2 NRBC# (test code = NRBC#) 0 K/uL [facility] [Type] in [id number] 02:00:00* Test Item Value Reference Range Interpretation Comme nts Rh [Type] in Blood (test cod e = 70857-8) 4+ ABO and Rh group panel - Blo od (test code = 91005-7) O [facility] screen [Presence] in Serum or Plasma 2021-01-12 02:00:00* Test Item Value Reference Range Interpretation Comme nts Blood group antibody screen [Presence] in Serum or Plasma (test code = 890-4) negative [facility]HIV 1+2 Ab [Presence] in [id number] 02:00:00HIV P24 AgHIV-1/2 [facility] Ab [Presence] in Serum by RPR 2021-01-12 02:00:00* Test Item Value Reference Range Interpretation Comme nts Reagin Ab [Presence] in Seru m by RPR (test code = 60553-6) nonreactive nonreactive [facility] GroupHepatitis B virus surface Ag [Presence] in Serum 2021-01-12 02:00:00* Test Item Value Reference Range Interpretation Comme nts .hepatitis B surface antigen (test code = .hepatitis B surface antigen) negative negative [facility] GroupChoriogonadotropin.intact+Beta subunit [Units/volume] in Serum or [id number] 00:00:00* Test Item Value Reference Range Interpretation Comme nts Choriogonadotropin.intact+Be ta subunit [Units/volume] in Serum or Plasma (test code = 04134-0) 125 mIU/mL [facility] Programpregnancy test, [id number] 10:05:00* Test Item Value Reference Range Interpretation Comme nts Test (test code = Test) negative [facility] W Auto Differential panel - [id number] 09:40:00 * Test Item Value Reference Range Interpretation Comme nts white blood count (test code = white blood count) 3.8 K/uL 4.0-11.5 L red blood count (test code = red blood count) 4.23 M/uL 3.80-5.20 hemoglobin (test code = hemoglobin) 13.0 g/dL 10.5-15.7 hematocrit (test code = hematocrit) 39.1 % 34.0-50.0 MCV [Entitic volume] (test c ode = 18140-5) 92.4 fL 86-100 mean corpuscular hemoglobin (test code = mean corpuscular hemoglobin) 30.7 pg 26.2-33.4 mean corpuscular HGB conc (t est code = mean corpuscular HGB conc) 33.2 g/dL 30-34 red cell distribution width (test code = red cell distribution width) 12.1 % 12.0-15.5 platelet count (test code = platelet count) 234 K/uL 165-450 mean platelet volume (test c ode = mean platelet volume) 10.6 fL 9.4-12.6 Segmented neutrophils/100 leukocytes in Blood (test code = 48370-7) 38.7 % 44.4-80.1 L Immature granulocytes [#/vol ume] in Blood (test code = 71182-8) 0.0 K/uL 0.0-0.03 lymphocyte% (test code = lymphocyte%) 47.2 % 10.0-50.0 mono % (test code = mono %) 12.4 % 3.6-12.0 H eos % (test code = eos %) 1.1 % 0.0-5.4 Basophils/100 leukocytes in Unspecified specimen (test code = 35788-4) 0.3 % 0.1-1.2 Band form neutrophils [#/vol ume] in Blood (test code = 41795-8) 1.47 K/uL 1.56-6.13 L Lymphocytes [#/volume] in Unspecified specimen by Automated count (test code = 80551-4) 1.8 K/uL 1.18-3.74 mono # (test code = mono #) 0.47 K/uL 0.24-0.86 eos # (test code = eos #) 0.04 K/uL 0.04-0.36 basophil # (test code = baso luz elena #) 0.01 K/uL 0.01-0.08 NRBC% (test code = NRBC%) 0 /100 WBC 0-0.2 NRBC# (test code = NRBC#) 0 K/uL [facility], [id number] 13:42:11* Test Item Value Reference Range Interpretation Comme [facility] Test (test code = Test) negative [facility] GroupUrinalysis macro (dipstick) panel - [id number] 13:41:49* Test Item Value Reference Range Interpretation Comme nts Leukocytes (test code = Leukocytes) Small Nitrite (test code = Nitrite) negative Urobilinogen (test code = Urobilinogen) .2 Protein (test code = Protein) Negative pH (test code = pH) 7.0 Blood (test code = Blood) Small Specific [place] (test code = Specific [place]) 1.010 Ketone (test code = Ketone) Negative Bilirubin (test code = Bilirubin) Negative Glucose (test code = Glucose) Negative Appearance (test code = Appearance) Clear Color (test code = Color) Yellow [facility], [id number] 10:09:20* Test Item Value Reference Range Interpretation Comme [facility] Test (test code = Test) negative [facility], [id number] 14:49:00* Test Item Value Reference Range Interpretation Comme [facility] Test (test code = Test) negative [facility], [id number] 16:04:29* Test Item Value Reference Range Interpretation Comme [facility] Test (test code = Test) negative [facility]
[2024-06-07] MEDS ORDERED: NA CHLORIDE 0.9% 1,000 ML ONE (09:41)
[2024-06-07 10:03] LABS: Absolute Lymphocytes (CBC) 1.7 K/uL (0.7-4.9); Absolute Monocytes 0.4 K/uL (0.1-1.3); Absolute Neutrophil 2.5 K/uL (1.8-8.0); Basophils % 0.6 % (0-1.3); Eosinophils % 0.7 % (0-4.4); Hematocrit 36.7 % (36.0-45.0); Hemoglobin 12.3 g/dL (12.0-15.0); MCH 29.6 pg (27.0-35.0); MCHC 33.5 g/dL (32.0-36.0); MCV 88.4 fL (80-100); MPV 8.5 fL (7.6-11.3); Monocytes % 8.2 % (3.3-12.3); Neutrophils % 54.5 % (41.7-73.7); Nucleated Red Blood Cells % 0.1 % (0-0); Platelets 246 thou/uL (152-406); RBC Red Blood Cell Count 4.15 M/uL (3.86-4.86); Red Cell Distribution Width 14.8 % (12.1-15.2)
[2024-06-07 10:22] LABS: Anion Gap 8.2 mEq/L (5.0-15.0); Potassium 3.2 mEq/L (3.5-5.1)
[2024-06-07 10:24] LABS: Specific Gravity < 1.005 (1.005-1.030); Sqamous Epithelial <5 /HPF (None Seen); Urine Bacteria <20 /HPF (<20); Urine Bilirubin NEGATIVE (Negative); Urine Blood Trace (Negative); Urine Clarity Turbid (Clear); Urine Color Colorless (Yellow); Urine Culture Reflex Order NOT NEEDED; Urine Glucose NEGATIVE (Negative); Urine Ketones NEGATIVE (Negative); Urine Microscopic Reflex YN ORDER UMIC; Urine Nitrite NEGATIVE (Negative); Urine Protein NEGATIVE (Negative); Urine Urobilinogen Normal (Normal); Urine WBC <5 /HPF (<5); Urine pH 6.5 (5.0-7.0)
--- NOTE | 2024-06-07 11:11 | RAD REPORT ---
EXAMINATION: Transvaginal OB COMPARISON: None. HISTORY: ABD CRAMPING, TECHNIQUE: Real-time ultrasound was performed through the pelvis. A transvaginal scan was performed t o better visualize the intrauterine contents and adnexa. FINDINGS: A single gestational sac, present near the fundal endometrium, with mean diameter 1.05 cm. No pole or cardiac pulsations are appreciated. Clustered small cystic spaces present along the anterior endometrial wall, separate from the gestatio nal sac, indeterminate, but may represent early subchorionic hemorrhage. Both ovaries are visualized and appear unremarkable. There is no free fluid in the cul-de-sac. Small nabothian cysts noted. Cervical canal appears closed. Measurements and Calculations: Mean diameter of 1.05 cm of the gestational sac, corresponds to sonographic age of 5 weeks, 6 days. T he patient's LMP dates are 04/22/2024. IMPRESSION: Single intrauterine gestational sac, with a composite sonographic age of 5 weeks, 6 days. No po le or cardiac pulsations are identified at this time, possibly due to very early age of the . Continued serial beta hCG trending and short-term sonographic follow-up in 7-10 days recom mended to ensure viability. Clustered small cystic spaces present along the anterior endometrial layer, separate from gestational sac, indeterminate, but may represent early subchorionic hemorrhage. Close clinical follow-up is recommended.
--- NOTE | 2024-06-07 11:27 | ER ---
Nurse's Notes [facility] Name: Cierra Carrillo Age: 29 yrs Sex: Female : 1995 Arrival Date: 06/07/2024 Time: 09:35 Bed 7 Private MD: Diagnosis: Threatened ;Other hemorrhage in early -5 weeks 6 day iup, no cardiac activity;Less than 8 weeks gestation of Presentation: 06/07 10:04 Chief complaint: Patient states: "I'm about 7-8 weeks and this morning I mb9 started having some cramping. I mal to the restroom and started having bright red vaginal bleeding that soaked through a handful of paper towels.". Coronavirus screen: Vaccine status: Patient reports receiving the 2nd dose of the covid vaccine. Ebola Screen: No symptoms or risks identified at this time. Initial Sepsis Screen: Does the patient meet any 2 criteria? No. Patient's initial sepsis screen is negative. Does the patient have a suspected source of infection? No. Patient's initial sepsis screen is negative. Risk Assessment: Do you want to hurt yourself or someone else? Patient reports no desire to harm self or others. Onset of symptoms was June 07, 2024. 10:04 Acuity: LELA 3 mb9 10:04 Method Of Arrival: Ambulatory mb9 Triage Assessment: 10:08 General: Appears in no apparent distress. Behavior is calm, cooperative. Pain: mb9 Complains of pain in pelvis. Pain: Pain does not radiate. Quality of pain is described as crampy, Pain began suddenly, Is intermittent. EENT: No signs and/or symptoms were reported regarding the EENT system. Neuro: Bennett Agitation-Sedation Scale (RASS): 0 - Alert and Calm Level of Consciousness is awake, alert, obeys commands, Oriented to person, place, time, situation, Appropriate for age. Cardiovascular: Patient's skin is warm and dry. Respiratory: Airway is patent Respiratory effort is even, unlabored, Respiratory pattern is regular, symmetrical. GI: Abdomen is flat, non-distended, Bowel sounds present X 4 quads. Abd is soft and non tender X 4 quads. : Urine is clear, Reports cramping, vaginal bleeding that is bright red, light flow. Derm: Skin is pink, warm \\T\\ dry. Musculoskeletal: Range of motion: intact in all extremities. 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 - Infectious Disease History:: Denies. - Social history:: Smoking status: Patient denies any tobacco usage or history of. - Family history:: not pertinent. Screenin:09 [facility] ED Fall Risk Assessment (Adult) History of falling in the last 3 months, mb9 including since admission No falls in past 3 months (0 pts) Confusion or Disorientation No (0 pts) Intoxicated or Sedated No (0 pts) Impaired Gait No (0 pts) Mobility Assist Device Used No (0 pt) Altered Elimination No (0 pt) Score/Fall Risk Level 0 - 2 = Low Risk Oriented to surroundings, Maintained a safe environment, Educated pt \\T\\ family on fall prevention, incl call for assistance when getting out of bed. Abuse screen: Denies threats or abuse. Nutritional screening: No deficits noted. Tuberculosis screening: No symptoms or risk factors identified. Assessment: 10:09 Reassessment: see triage assessment. mb9 11:21 Reassessment: No changes from previously documented assessment. Patient and/or family mb9 updated on plan of care and expected duration. Pain level reassessed. Patient is alert, oriented x 3, equal unlabored respirations, skin warm/dry/pink. Vital Signs: 10:04 BP 114 / 72; Pulse 78; Resp 16; Temp 98; Pulse Ox 100% on R/A; mb9 11:21 BP 109 / 76; Pulse 68; Resp 15; Pulse Ox 100% on R/A; mb9 ED Course: 09:36 Patient arrived in ED. mr 09:38 Reji Jason MD is Attending Physician. loretta 09:38 Teri Fuentes RN is Primary Nurse. mb9 10:04 Arm band placed on. mb9 10:08 Triage completed. mb9 10:09 Initial lab(s) drawn, by me, sent to lab. Inserted saline lock: 20 gauge in right mb9 antecubital area, using aseptic technique. Blood collected. Flushed with 10 mL NS. 10:09 Urine collected: clean catch specimen, clear. mb9 10:10 Placed in gown. Bed in low position. Call light in reach. Side rails up X 1. Provided mb9 Education on: press call light if needing anything. 10:10 No provider procedures requiring assistance completed. mb9 10:28 Transvaginal Ob In Process Unspecified. EDMS 11:38 IV discontinued, intact, bleeding controlled, No redness/swelling at site. Pressure mb9 dressing applied. Administered Medications: 10:10 Drug: NS 0.9% IV 1000 ml IV at 1 bolus Per protocol; 1000 mL bolus Route: IV; Rate: 1 mb9 bolus; Site: right antecubital; 11:21 Follow up: Response: No adverse reaction; IV Status: Completed infusion mb9 Medication: 10:10 VIS not applicable for this client. mb9 Outcome: 11:27 Discharge ordered by MD. burgos 11:38 Discharged to home ambulatory, with family, mbMalick 11:38 Condition: stable 11:38 Discharge instructions given to patient, Instructed on discharge instructions, follow up and referral plans. Demonstrated understanding of instructions, follow-up care, 11:38 Patient left the ED. mb9 Signatures: Dispatcher [employer] EDMS Reji Jason MD MD cha Rivera, Mary, Reg Reg mr BurgessFuentes, Teri Li, RN RN mb9
--- NOTE | 2024-06-07 11:27 | EDPHYS ---
Physician Documentation [facility] Name: Cierra Carrillo Age: 29 yrs Sex: Female : 1995 Arrival Date: 06/07/2024 Time: 09:35 Bed 7 Private MD: ED Physician Reji Jason HPI: 06/07 11:17 This 29 yrs old Female presents to ER via Ambulatory with complaints of loretta Vaginal Bleeding, + Preg <12wks. 11:17 The patient presents to the emergency department with vaginal bleeding, that is light. loretta The estimated gestational age is 8 weeks. course: care: at a clinic. Associated signs and symptoms: The patient has no apparent associated signs or symptoms. The patient has not experienced similar symptoms in the past. 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 - Infectious Disease History:: Denies. - Social history:: Smoking status: Patient denies any tobacco usage or history of. - Family history:: not pertinent. ROS: 11:17 Constitutional: Negative for fever, chills, and weight loss, Eyes: Negative for injury, loretta pain, redness, and discharge, ENT: Negative for injury, pain, and discharge, Neck: Negative for injury, pain, and swelling, Cardiovascular: Negative for chest pain, palpitations, and edema, Respiratory: Negative for shortness of breath, cough, wheezing, and pleuritic chest pain, Abdomen/GI: Negative for abdominal pain, nausea, vomiting, diarrhea, and constipation, Back: Negative for injury and pain, MS/Extremity: Negative for injury and deformity, Skin: Negative for injury, rash, and discoloration, Neuro: Negative for headache, weakness, numbness, tingling, and seizure, Psych: Negative for depression, anxiety, suicide ideation, homicidal ideation, and hallucinations, Allergy/Immunology: Negative for hives, rash, and allergies, Endocrine: Negative for neck swelling, polydipsia, polyuria, polyphagia, and marked weight changes, Hematologic/Lymphatic: Negative for swollen nodes, abnormal bleeding, and unusual bruising, 11:17 : Positive for vaginal bleeding, Exam: 11:17 Constitutional: This is a well developed, well nourished patient who is awake, alert, loretta and in no acute distress. Head/Face: Normocephalic, atraumatic. Eyes: Pupils equal round and reactive to light, extra-ocular motions intact. Lids and lashes normal. Conjunctiva and sclera are non-icteric and not injected. Cornea within normal limits. Periorbital areas with no swelling, redness, or edema. ENT: Nares patent. No nasal discharge, no septal abnormalities noted. Tympanic membranes are normal and external auditory canals are clear. Oropharynx with no redness, swelling, or masses, exudates, or evidence of obstruction, uvula midline. Mucous membranes moist. Neck: Trachea midline, no thyromegaly or masses palpated, and no cervical lymphadenopathy. Supple, full range of motion without nuchal rigidity, or vertebral point tenderness. No Meningismus. Chest/axilla: Normal chest wall appearance and motion. Nontender with no deformity. No lesions are appreciated. Cardiovascular: Regular rate and rhythm with a normal S1 and S2. No gallops, murmurs, or rubs. Normal PMI, no JVD. No pulse deficits. Respiratory: Lungs have equal breath sounds bilaterally, clear to auscultation and percussion. No rales, rhonchi or wheezes noted. No increased work of breathing, no retractions or nasal flaring. Abdomen/GI: Soft, non-tender, with normal bowel sounds. No distension or tympany. No guarding or rebound. No evidence of tenderness throughout. Back: No spinal tenderness. No costovertebral tenderness. Full range of motion. Skin: Warm, dry with normal turgor. Normal color with no rashes, no lesions, and no evidence of cellulitis. MS/ Extremity: Pulses equal, no cyanosis. Neurovascular intact. Full, normal range of motion. Neuro: Awake and alert, GCS 15, oriented to person, place, time, and situation. Cranial nerves II-XII grossly intact. Motor strength 5/5 in all extremities. Sensory grossly intact. Cerebellar exam normal. Normal gait. Psych: Awake, alert, with orientation to person, place and time. Behavior, mood, and affect are within normal limits. Vital Signs: 10:04 BP 114 / 72; Pulse 78; Resp 16; Temp 98; Pulse Ox 100% on R/A; mb9 11:21 BP 109 / 76; Pulse 68; Resp 15; Pulse Ox 100% on R/A; mb9 MDM: 09:38 Patient medically screened. [facility] 06/07 09:40 Order name: Abo/rh Typing; Complete Time: 11:16 [facility] 06/07 09:40 Order name: Basic Metabolic Panel; Complete Time: 11:16 [facility] 06/07 09:40 Order name: CBC with Diff; Complete Time: 11:16 [facility] 06/07 09:40 Order name: Quantitative Hcg; Complete Time: 11:16 [facility] 06/07 09:40 Order name: Urinalysis w/ reflexes; Complete Time: 11:16 [facility] 06/07 09:40 Order name: US Transvaginal Ob; Complete Time: 11:16 [facility] 06/07 09:40 Order name: IV Saline Lock; Complete Time: 10:04 [facility] 06/07 09:40 Order name: Labs collected and sent; Complete Time: 10:04 [facility] 06/07 09:40 Order name: NPO; Complete Time: 10:04 [facility] Administered Medications: 10:10 Drug: NS 0.9% IV 1000 ml IV at 1 bolus Per protocol; 1000 mL bolus Route: IV; Rate: 1 mb9 bolus; Site: right antecubital; 11:21 Follow up: Response: No adverse reaction; IV Status: Completed infusion mb9 Disposition Summary: 06/07/24 11:27 Discharge Ordered Notes: Location: Home loretta Problem: new loretta Symptoms: have improved loretta Condition: Stable loretta Diagnosis - Threatened loretta - Other hemorrhage in early - 5 weeks 6 day iup, no cardiac activity loretta - Less than 8 weeks gestation of loretta Followup: loretta - With: Private Physician - When: 1 - 2 days - Reason: Recheck today's complaints, Continuance of care, Re-evaluation by your physician Discharge Instructions: - Discharge Summary Sheet loretta - Care loretta - Threatened Miscarriage loretta - Vaginal Bleeding During , First Trimester loretta - First Trimester of , Cfrs-[id number] loretta - First Trimester of loretta - Threatened Miscarriage, [id number] loretta - Vaginal Bleeding During , First Trimester, [id number] loretta Forms: - Medication Reconciliation Form loretta - Antibiotic Education loretta - Prescription Opioid Use loretta - Patient Portal Instructions loretta - Leadership Thank You Letter loretta - Work release form mb9 Signatures: Dispatcher [employer] Reji Magallanes MD MD cha Wilkerson, Mary Beth RN RN mb9
[2024-06-07 15:06] VITALS: TEMP 98; O2SAT 100
[2024-06-07 15:07] VITALS: BP 109/76
== END 2024-06-07 11:38 | disposition home or self-care (01) ==
LOC: ER 09:35
DX: O20.0 Threatened abortion (principal); Z3A.01 Less than 8 weeks gestation of pregnancy
CPT/HCPCS: 85025; 81001; 80048; 36415; 86900; 86901; 84702; 76817; 96360; 99284; J7030